=== PATIENT | female | born 1950 | race Caucasian/White ===

== ENCOUNTER 2017-09-20 08:38 | Day surgery (SDC) | payer MEDICARE, OTHER ==
[2017-09-20 10:04] LABS: ADD MAN DIFF? NO
[2017-09-20] MEDS ORDERED: IOHEXOL 300MG/ML 30 ML BTL (10:05)
[2017-09-20 10:08] LABS: WHITE BLOOD COUNT 4.3 10^3/ul (4.8-10.8)
[2017-09-20 10:08] LABS: BASOPHILS % 0.2 % (0.0-2.0); EOSINOPHILS # 0.1 10^3/ul (0.0-0.5); EOSINOPHILS % 1.9 % (0.0-7.0); HEMATOCRIT 37.2 % (37.0-47.0); HEMOGLOBIN 12.8 g/dl (12.0-16.0); LYMPHOCYTES # 1.8 10^3/ul (0.8-2.9); LYMPHOCYTES % 43.1 % (15.0-51.0); MEAN CORPUSCULAR HEMOGLOBIN 30.8 pg (29.0-33.0); MEAN CORPUSCULAR HGB CONC 34.4 g/dl (32.0-37.0); MEAN CORPUSCULAR VOLUME 89.4 fl (82.0-101.0); MEAN PLATELET VOLUME 10.4 fl (7.4-10.4); MONOCYTE # 0.3 10^3/ul (0.3-0.9); MONOCYTES % 7.7 % (0.0-11.0); NEUTROPHILS % 46.9 % (39.0-77.0); PLATELET COUNT 252 10^3/UL (140-415); RED BLOOD COUNT 4.16 10^6/ul (4.20-5.40); RED CELL DISTRIBUTION WIDTH 12.9 % (11.5-14.5)
[2017-09-20] MEDS ORDERED: LIDOCAINE 2% (SDV) 5 ML INJ (10:27)
[2017-09-20] MEDS ORDERED: SUCCINYLCHOLINE CHLORIDE 100 MG/5 ML SYG IV (10:27)
[2017-09-20] MEDS ORDERED: PROPOFOL 20 ML (10:27)
[2017-09-20] MEDS ORDERED: MIDAZOLAM 1 MG/ML 2 ML INJ (10:28)
[2017-09-20] MEDS ORDERED: MEPERIDINE 25 MG INJ IV (10:30)
[2017-09-20] MEDS ORDERED: FENTAnyl 50 MCG/ML VIAL IV (10:30)
[2017-09-20] MEDS ORDERED: DIPHENHYDRAMINE 50 MG INJ IV (10:30)
[2017-09-20] MEDS ORDERED: HYDROmorphONE 1 MG/5 ML IV SYRINGE IV (10:30)
[2017-09-20] MEDS ORDERED: ONDANSETRON 4 MG INJ IV (10:30)
[2017-09-20] MEDS ORDERED: PROCHLORPERAZINE 10 MG INJ IV (10:30)
[2017-09-20 10:32] LABS: ANION GAP 13 (8-16); BLOOD UREA NITROGEN 14 mg/dl (7-20); CALCIUM 8.7 mg/dl (8.4-10.2); CARBON DIOXIDE 25 mmol/L (21-31); CHLORIDE 110 mmol/L (97-110); CREATININE 0.58 mg/dl (0.44-1.00); GLUCOSE 95 mg/dl (70-220); POTASSIUM 3.8 mmol/L (3.5-5.1); SODIUM 144 mmol/L (135-144)
[2017-09-20] MEDS ORDERED: FAMOTIDINE 20 MG INJ (10:39)
[2017-09-20] MEDS ORDERED: ONDANSETRON 4 MG INJ (10:39)
[2017-09-20] MEDS ORDERED: DEXAMETHASONE 4 MG/ML 1 ML INJ (10:39)
[2017-09-20] MEDS ORDERED: hydrALAzine 20 MG INJ (11:05)
== END 2017-09-20 13:30 | disposition home or self-care (01) ==
LOC: SDS 08:38 → GIL 08:44 → SDS 13:30
DX: K80.50 Calculus of bile duct without cholangitis or cholecystitis without obstruction (principal)
CPT/HCPCS: 43264; 71045; 74330; 80048; 85025